=== PATIENT | male | born 1990 | race American Indian/Alaskan Native ===

== ENCOUNTER 2016-10-06 13:40 | Emergency (ER) | payer SELFPAY ==
[2016-10-06 13:56] VITALS: BP 128/86
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
== END 2016-10-06 17:42 | disposition left against medical advice (07) ==
LOC: ED 13:40
DX: K13.79 Other lesions of oral mucosa (principal); Z53.21 Procedure and treatment not carried out due to patient leaving prior to being seen by health care provider
CPT/HCPCS: 70486